=== PATIENT | male | born 1950 | race African-American/Black ===

== ENCOUNTER 2017-09-07 19:20 | Inpatient (IN) | payer OTHER, MEDICARE ==
--- NOTE | 2017-09-07 19:57 | ER Document Report ---
ED Neuro Symptoms/Deficit - General Stated Complaint: ALTERED MENTAL STATUS Time Seen by Provider: 09/07/17 19:52 Notes: Patient was being visited by his daughter and she says that he suddenly began to gaze to the right and that was followed by her noting his lips twitching and his right hand twitching. Patient has never had any of these symptoms before. He has had 3 prior strokes since March of this year. The first stroke in March left him with right-sided neurologic deficit and incapable of standing or walking or talking. That stroke was followed by 2 strokes in May that incapacitated him even further. One of those strokes resulted in his having a temporary left sided gaze of his eyes. Family moved him here to [place] on July 10, of this year. Daughter says that he has recovered enough function to ambulate a slight amount with assistance and he can answer a question or two with a yes or no answer. Is currently a resident in a local retirement, [place]. Patient is on Eliquis blood thinner. Known to have atrial fibrillation. Patient has not been sick in any way recently. No vomiting or diarrhea. No shortness of breath or difficulty breathing. No fevers. Past Medical History - Social History Smoking Status: Unknown if Ever Smoked Lives with: Assisted Family History: Reviewed & Not Pertinent - Past Medical History Cardiac Medical History: Reports: Hx Atrial Fibrillation, Hx Hypertension, Other - Pacemaker Neurological Medical History: Reports: Hx Cerebrovascular Accident - Multiple old strokes Endocrine Medical History: Denies: Hx Diabetes Mellitus Type 2 Past Surgical History: Reports: Hx Pacemaker Review of Systems - Review of Systems Notes: Patient is unable to answer review of systems, but daughter provides most of necessary information. REVIEW OF SYSTEMS: CONSTITUTIONAL : Denies fever. EENT: Denies eye, ear, nose or mouth or throat pain or other symptoms. CARDIOVASCULAR: Denies chest pain. RESPIRATORY: Denies cough, chest congestion, or shortness of breath. GASTROINTESTINAL: Denies abdominal pain or nausea, vomiting, or diarrhea. GENITOURINARY: Denies difficulty or painful urinating, urinary frequency, blood in urine. MUSCULOSKELETAL: Denies back or neck pain. Denies joint pain or swelling. SKIN: Denies rash or skin lesions. NEUROLOGICAL: See HPI regarding altered mental status. Daughter observed twitching of patient's mouth and right hand. Denies sensory loss or motor deficits. ALL OTHER SYSTEMS REVIEWED AND NEGATIVE. Physical Exam - Vital signs Vitals: Resp Pulse Ox 20 98 09/07/17 19:46 09/07/17 19:46 Interpretation: Hypertensive, Tachycardic. No: Hypoxic, Tachypneic, Febrile - Notes Notes: PHYSICAL EXAMINATION: GENERAL: Chronically ill appearing. Patient with head turned to the right and eyes deviating to the right only. Does not respond to questions verbally or by following commands. HEAD: Atraumatic, normocephalic. EYES: Patient's eyes are both deviated to the right. I do not see actual twitching of the eyes or lids. Unable to assess pupils. ENT: oropharynx clear without exudates. Moist mucous membranes. NECK: Normal range of motion, supple. LUNGS: Breath sounds clear and equal bilaterally. HEART: Regular rate and rhythm with murmurs. ABDOMEN: Soft, nontender. No guarding or rebound. Feeding tube in mid abdomen BACK: No tenderness throughout entire back. EXTREMITIES: Normal range of motion without pain except for right arm which is in a immobilizing splint. NEUROLOGICAL: No speech, no gait. Patient unable to cooperate for neurologic exam. May be exhibiting some form of seizure activity. PSYCH: Normal mood, normal affect. SKIN: Warm, dry, no rashes. Course - Re-evaluation Re-evalutation: 09/07/17 22:15 Patient's heart rate went up into the 150 range for short time. During that time, his blood pressure was also quite high at about 240/130. I started the patient off with 5 mg of Lopressor IV followed by Cardizem drip at 5 mg/h and his blood pressure and heart rate improved somewhat. I increase the patient's Cardizem drip to 10 mg/h and his heart rate was maintained at about 90 and his blood pressure came down to about 186/105. Oxygen saturation 100%. Patient is relaxed and resting. Daughter at the bedside noted him biting his lower lip and there is about a 2 cm laceration of the right lower lip, but I do not think it require suturing. Discussed plan for resuscitation should patient stop breathing or deteriorate in some fashion and the daughter seems to indicate to me that the family and the patient wished to have the patient resuscitated and to include the ventilator, if needed. Spoke with Dr. Canseco, this patient's primary care provider and he will admit the patient to [facility]. 09/07/17 22:35 - Vital Signs Vital signs: Temp Pulse Resp BP Pulse Ox 155 H 15 250/155 H 96 09/07/17 20:20 09/07/17 20:51 09/07/17 20:51 09/07/17 20:51 - Laboratory Result Diagrams: 09/07/17 20:05 09/07/17 20:05 Laboratory results interpreted by me: 09/07/17 09/07/17 09/07/17 20:05 20:05 20:05 WBC 3.1 L Hgb 11.7 L Hct 36.4 L MCV 77 L MCH 24.9 L RDW 19.3 H PT 16.2 H Potassium 3.4 L Glucose 169 H - Diagnostic Test Radiology reviewed: Image reviewed, Reports reviewed - CT scan of the brain shows multiple old infarcts, but no new injury or infarct. Radiology results interpreted by me: 09/07/17 22:20 Chest x-ray shows significant cardiomegaly, but otherwise normal, no infiltrates and no evidence of fluid overload. Critical Care Note - Critical Care Note Total time excluding time spent on procedures (mins): 60 Discharge - Discharge Clinical Impression: Altered mental status, Possible seizure, Hypertension Condition: Fair Disposition: ADMITTED INPATIENT Admitting Provider: Ele[facility] Unit Admitted: [facility] Referrals: RALPH CANSECO MD [Primary Care Provider] - Follow up as needed
--- NOTE | 2017-09-07 20:14 | RADIOLOGY REPORT (SQ) ---
EXAM DESCRIPTION: CT HEAD WITHOUT COMPLETED DATE/TIME: 09/07/2017 7:58 pm REASON FOR STUDY: Possible CVA COMPARISON: None. TECHNIQUE: Axial images acquired through the brain without intravenous contrast. Images reviewed wi th bone, brain and subdural windows. Images stored on PACS. All CT scanners at this facility use dose modulation, iterative reconstruction, and/or weight based d osing when appropriate to reduce radiation dose to as low as reasonably achievable (ALARA). [facility]: Dose Right [facility]: CareDose [facility]: Dose Right [facility]: Teradose 4D [facility]: [employer] RADIATION DOSE: Up-to-date CT equipment and radiation dose reduction techniques were employed. CTDIv ol: 64.6 mGy. DLP: 1163 mGy-cm.mGy. LIMITATIONS: None. FINDINGS: VENTRICLES: Prominent. CEREBRUM: No masses. No hemorrhage. No midline shift. Areas of low density in the white matter mos t likely due to chronic micro-vascular ischemic change. There is focal encephalomalacia in the left frontoparietal region in in both occipital regions consistent with areas of prior infarction. Old la cunar infarct is identified in the region of the basal ganglia on the left. CEREBELLUM: No masses. No hemorrhage. No alteration of density. No evidence for acute infarction. EXTRAAXIAL SPACES: Age-related involutional change. No fluid collections. No masses. ORBITS AND GLOBE: No intra- or extraconal masses. Normal contour of globe without masses. CALVARIUM: No fracture. PARANASAL SINUSES: No fluid or mucosal thickening. SOFT TISSUES: No mass or hematoma. OTHER: There is some prominence of the basilar tip measuring 9.9 mm and I cannot exclude a basilar ti p aneurysm. IMPRESSION: CHRONIC CHANGES OF ATROPHY AND MICROVASCULAR ISCHEMIA. Multiple areas of prior infarcti on as noted above. There is some prominence of the basilar tip as noted above and I cannot exclude a basilar tip aneurysm. Clinical correlation is recommended. Other findings as noted above EVIDENCE OF ACUTE STROKE: NO. TECHNICAL DOCUMENTATION: JOB ID: [id number] Quality ID # [id number]: Final reports with documentation of one or more dose reduction techniques (e.g., Au tomated exposure control, adjustment of the mA and/or kV according to patient size, use of iterative reconstruction technique) 2010 [employer]- All Rights Reserved
[2017-09-07 20:37] LABS: PROTHROMBIN TIME 16.2 SEC (11.4-15.4)
[2017-09-07 20:39] LABS: PARTIAL THROMBOPLASTIN TIME 35.1 SEC (23.5-35.8)
[2017-09-07 20:40] LABS: ABSOLUTE EOSINOPHILS # (AUTO) 0.1 10^3/uL (0.0-0.6); ABSOLUTE MONOCYTES (AUTO) 0.3 10^3/uL (0.1-1.4); ABSOLUTE NEUT (AUTO) 1.7 10^3/uL (1.7-8.2); BASOPHILS % (AUTO) 1.2 % (0-2); EOSINOPHILS % (AUTO) 3.7 % (0-6); HEMATOCRIT 36.4 % (37.9-51.0); HEMOGLOBIN 11.7 g/dL (13.5-17.0); HGB HCT DIFFERENCE -1.3; MEAN CORPUSCULAR HEMOGLOBIN 24.9 pg (27.0-33.4); MEAN CORPUSCULAR HGB CONC 32.2 g/dL (32.0-36.0); MEAN CORPUSCULAR VOLUME 77 fl (80-97); MONOCYTES % (AUTO) 10.5 % (3-13); RED CELL DISTRIBUTION WIDTH 19.3 % (11.5-14.0); SEGMENTED NEUTROPHILS % (AUTO) 53.6 % (42-78); WHITE BLOOD COUNT 3.1 10^3/uL (4.0-10.5)
[2017-09-07 20:44] LABS: ALANINE AMINOTRANSFERASE 31 U/L (21-72); ALBUMIN 3.6 g/dL (3.5-5.0); ALKALINE PHOSPHATASE 108 U/L (38-126); ANION GAP 12 (5-19); ASPARTATE AMINO TRANSFERASE 21 U/L (17-59); BILIRUBIN,DIRECT 0.3 mg/dL (0.0-0.4); BILIRUBIN,TOTAL 0.4 mg/dL (0.2-1.3); BLOOD UREA NITROGEN 12 mg/dL (7-20); CALCIUM 8.8 mg/dL (8.4-10.2); CARBON DIOXIDE 29 mmol/L (22-30); CHLORIDE 103 mmol/L (98-107); CREATINE KINASE 56 U/L (55-170); CREATININE RESULT 0.63 mg/dL (0.52-1.25); GLUCOSE 169 mg/dL (75-110); POTASSIUM 3.4 mmol/L (3.6-5.0); SODIUM 143.8 mmol/L (137-145); TOTAL PROTEIN 7.5 g/dL (6.3-8.2)
[2017-09-07] MEDS ORDERED: LORAZEPAM INJ 2 MG/1 ML VIAL IV ONE ×2 (20:47→21:45)
[2017-09-07] MEDS ORDERED: LORAZEPAM INJ 2 MG/1 ML VIAL ONE (20:49)
[2017-09-07] MEDS ORDERED: METOPROLOL TARTRATE PF/INJ 5 MG/5 ML SDV IV ONE (20:56)
--- NOTE | 2017-09-07 21:08 | RADIOLOGY REPORT (SQ) ---
EXAM DESCRIPTION: CHEST SINGLE VIEW COMPLETED DATE/TIME: 09/07/2017 8:36 pm REASON FOR STUDY: stroke protocol COMPARISON: None. EXAM PARAMETERS: NUMBER OF VIEWS: One view. TECHNIQUE: Single frontal radiographic view of the chest acquired. RADIATION DOSE: NA LIMITATIONS: None. FINDINGS: LUNGS AND PLEURA: No opacities, masses or pneumothorax. No pleural effusion. MEDIASTINUM AND HILAR STRUCTURES: No masses. Contour normal. HEART AND VASCULAR STRUCTURES: Cardiac silhouette is enlarged. BONES: No acute findings. HARDWARE: Pool chamber transvenous pacemaker is identified. OTHER: No other significant finding. IMPRESSION: Cardiomegaly. No acute consolidations or pleural effusions are identified TECHNICAL DOCUMENTATION: JOB ID: [id number]
[2017-09-07] MEDS: DILTIAZEM HCL/D5W 125 MG/125 ML RTUINJ IV PRN ×2 (21:12→21:47)
[2017-09-07 21:57] LABS: CREATINE KINASE MB 1.62 ng/mL (<4.55); TROPONIN I < 0.012 ng/mL
[2017-09-08 00:06] LABS: PROTHROMBIN TIME 15.5 SEC (11.4-15.4)
[2017-09-08 00:06] LABS: APPEARANCE,URINE CLEAR; BILIRUBIN,URINE NEGATIVE (NEGATIVE); GLUCOSE, URINE 50 mg/dL (NEGATIVE); KETONES,URINE NEGATIVE (NEGATIVE); LEUKOCYTE ESTERASE,URINE NEGATIVE (NEGATIVE); NITRITE,URINE NEGATIVE (NEGATIVE); PROTEIN,URINE 30 mg/dL (NEGATIVE); URINE SPECIFIC GRAVITY 1.008
[2017-09-08 00:07] LABS: PARTIAL THROMBOPLASTIN TIME 32.3 SEC (23.5-35.8)
[2017-09-08 00:16] LABS: CREATINE KINASE MB 1.91 ng/mL (<4.55)
[2017-09-08 00:25] LABS: TROPONIN I < 0.012 ng/mL
[2017-09-08] MEDS ORDERED: DILTIAZEM HCL/D5W 125 MG/125 ML RTUINJ IV PRN (02:36)
[2017-09-08] MEDS ORDERED: INFLUENZA ADLT QUAD (36MOS+) 2017-18 VAC 0.5 ML SYR IM PRN (03:02)
--- NOTE | 2017-09-08 06:36 | RADIOLOGY REPORT (SQ) ---
EXAM DESCRIPTION: CT HEAD WITHOUT COMPLETED DATE/TIME: 09/08/2017 6:28 am REASON FOR STUDY: cva COMPARISON: 09/07/2017 TECHNIQUE: Axial images acquired through the brain without intravenous contrast. Images reviewed wi th bone, brain and subdural windows. Images stored on PACS. All CT scanners at this facility use dose modulation, iterative reconstruction, and/or weight based d osing when appropriate to reduce radiation dose to as low as reasonably achievable (ALARA). [facility]: Dose Right [facility]: CareDose [facility]: Dose Right [facility]: Teradose 4D [facility]: [employer] RADIATION DOSE: mGy. LIMITATIONS: None. FINDINGS: VENTRICLES: Prominent. CEREBRUM: No masses. No hemorrhage. No midline shift. Areas of low density in the white matter mos t likely due to chronic micro-vascular ischemic change. No evidence for acute infarction. Multiple old infarcts. CEREBELLUM: No masses. No hemorrhage. No alteration of density. No evidence for acute infarction. EXTRAAXIAL SPACES: Age-related involutional change. No fluid collections. No masses. ORBITS AND GLOBE: No intra- or extraconal masses. Normal contour of globe without masses. CALVARIUM: No fracture. PARANASAL SINUSES: No fluid or mucosal thickening. SOFT TISSUES: No mass or hematoma. OTHER: Prominence of the basilar tip. Question aneurysm. IMPRESSION: CHRONIC CHANGES OF ATROPHY AND MICROVASCULAR ISCHEMIA. Multiple infarcts. Question bas ilar tip aneurysm. No change. EVIDENCE OF ACUTE STROKE: NO. TECHNICAL DOCUMENTATION: JOB ID: [id number] Quality ID # [id number]: Final reports with documentation of one or more dose reduction techniques (e.g., Au tomated exposure control, adjustment of the mA and/or kV according to patient size, use of iterative reconstruction technique) 2010 [employer]- All Rights Reserved
[2017-09-08 07:02] LABS: ABSOLUTE LYMPHOCYTES (AUTO) 0.5 10^3/uL (0.5-4.7); ABSOLUTE MONOCYTES (AUTO) 0.4 10^3/uL (0.1-1.4); ABSOLUTE NEUT (AUTO) 6.6 10^3/uL (1.7-8.2); BASOPHILS % (AUTO) 0.3 % (0-2); HEMATOCRIT 39.6 % (37.9-51.0); HEMOGLOBIN 12.5 g/dL (13.5-17.0); HGB HCT DIFFERENCE -2.1; LYMPHOCYTES % (AUTO) 6.7 % (13-45); MEAN CORPUSCULAR HEMOGLOBIN 24.4 pg (27.0-33.4); MEAN CORPUSCULAR HGB CONC 31.5 g/dL (32.0-36.0); MEAN CORPUSCULAR VOLUME 78 fl (80-97); MONOCYTES % (AUTO) 4.8 % (3-13); RED CELL DISTRIBUTION WIDTH 18.9 % (11.5-14.0); SEGMENTED NEUTROPHILS % (AUTO) 88.2 % (42-78)
[2017-09-08 07:07] LABS: WHITE BLOOD COUNT 7.4 10^3/uL (4.0-10.5)
[2017-09-08 07:15] LABS: ALANINE AMINOTRANSFERASE 44 U/L (21-72); ALBUMIN 4.2 g/dL (3.5-5.0); ALKALINE PHOSPHATASE 127 U/L (38-126); ANION GAP 13 (5-19); ASPARTATE AMINO TRANSFERASE 28 U/L (17-59); BILIRUBIN,DIRECT 0.4 mg/dL (0.0-0.4); BILIRUBIN,TOTAL 0.6 mg/dL (0.2-1.3); BLOOD UREA NITROGEN 11 mg/dL (7-20); CALCIUM 8.9 mg/dL (8.4-10.2); CARBON DIOXIDE 33 mmol/L (22-30); CHLORIDE 101 mmol/L (98-107); CHOLESTEROL 90.79 mg/dL (0-200); CREATINE KINASE 49 U/L (55-170); CREATININE RESULT 0.71 mg/dL (0.52-1.25); Direct HDL 47 mg/dL (>40); GLUCOSE 113 mg/dL (75-110); SODIUM 147.2 mmol/L (137-145); TOTAL PROTEIN 8.2 g/dL (6.3-8.2); TRIGLYCERIDES 33 mg/dL (<150)
[2017-09-08 07:24] LABS: CREATINE KINASE MB 3.06 ng/mL (<4.55)
[2017-09-08 07:26] LABS: DIRECT LDL 36 mg/dL (<100)
[2017-09-08 07:36] LABS: TROPONIN I 0.046 ng/mL
[2017-09-08 07:37] LABS: POTASSIUM 4.4 mmol/L (3.6-5.0)
[2017-09-08 11:52] LABS: CREATINE KINASE MB 2.99 ng/mL (<4.55); TROPONIN I 0.04 ng/mL
[2017-09-08] MEDS ORDERED: LORAZEPAM INJ 2 MG/1 ML VIAL ONE (12:24)
[2017-09-08] MEDS ORDERED: METOPROLOL TARTRATE PF/INJ 5 MG/5 ML SDV IV ONE ×2 (12:31→13:12)
--- NOTE | 2017-09-08 14:52 | RADIOLOGY REPORT (SQ) ---
EXAM DESCRIPTION: CAROTID DOPPLER COMPLETED DATE/TIME: 09/08/2017 2:42 pm REASON FOR STUDY: cva COMPARISON: None. TECHNIQUE: Grayscale ultrasound, Doppler velocity and spectra, and color Doppler images acquired of the extra-cranial carotid and vertebral arteries. Images stored on PACS. LIMITATIONS: None. FINDINGS: RIGHT CAROTID CCA Velocities: Within normal limits. ICA Velocities Peak systolic 0.66 m/s. End diastolic 0.17 m/s. Proximal ICA/CCA peak systolic ratio 2.3. Spectra normal. No significant plaque. LEFT CAROTID CCA Velocities: Within normal limits. ICA Velocities Peak systolic 0.65 m/s. End diastolic 0.26 m/s. Proximal ICA/CCA peak systolic ratio 1.5. Spectra normal. No significant plaque. VERTEBRAL ARTERIES: Right vertebral artery patent. Left vertebral artery not visualized. SUBCLAVIAN ARTERIES: No finding. OTHER: No other significant finding. IMPRESSION: NO HEMODYNAMICALLY SIGNIFICANT STENOSIS IN THE INTERNAL CAROTID ARTERIES. THE LEFT VERT EBRAL ARTERY IS NOT VISUALIZED AND MAY BE SMALL OR OCCLUDED. RIGHT VERTEBRAL ARTERY IS PATENT. . COMMENT: Quality ID #[id number]: Velocity criteria are extrapolated from the diameter data as defined by t he Society of Radiologists in Ultrasound Consensus Conference. Radiology 2003: 229; 340-346. TECHNICAL DOCUMENTATION: JOB ID: [id number] [employer]- All Rights Reserved
--- NOTE | 2017-09-08 15:28 | EKG REPORT ---
SEVERITY:- ABNORMAL ECG - AFIB/FLUT AND V-PACED COMPLEXES RBBB AND LPFB CONSIDER LEFT VENTRICULAR HYPERTROPHY NONSPECIFIC ST DEPRESSION, ANT-LAT LEADS : Confirmed by: Yvette Shin 08-Sep-2017 15:27:24
[2017-09-08 15:44] LABS: MAGNESIUM 1.9 mg/dL (1.6-2.3)
[2017-09-08 15:57] LABS: CREATINE KINASE MB 3.23 ng/mL (<4.55); TROPONIN I 0.039 ng/mL
[2017-09-08] MEDS ORDERED: TRAZODONE HCL 50 MG TABLET PO PRN (16:02)
[2017-09-08] MEDS ORDERED: ACETAMINOPHEN 325 MG TABLET PO PRN (16:02)
--- NOTE | 2017-09-08 19:16 | PDOC H&P ---
History of Present Illness Admission Date/PCP: 09/07/17 22:51 RALPH CANSECO MD History of Present Illness: MAGALI DUNCAN is a 67 year old male, he has a history of multiple strokes, resident of the [facility] at [place], residual right-sided paralysis, aphasia he was transferred from the penit[facility]iary to the emergency room because of altered mental status, there was question of a new stroke, in the emergency room he was noticed to be twitching but there was no definitive tonic-clonic contraction that would suggest a seizure, but seizure was suspected, he was given lorazepam intravenously with resolution of symptoms. He has a pacemaker MRI brain could not be done, initial CT head was negative for an acute stroke, while on the floor, a tonic-clonic contraction was witnessed by the nurse, was given lorazepam and subsequently IV Dilantin, loading dose. Patient overall prognosis is very poor, he has multiple CVA about 3 CVA before he moved down to [facility] in [place]. 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 MRA could not be done because he has a pacemaker , he has limited functions Past Medical History Cardiac Medical History: Reports: Atrial Fibrillation, Hypertension, Other - Pacemaker Neurological Medical History: Reports: Ischemic CVA Past Surgical History Past Surgical History: Reports: Pacemaker Social History Lives with: Assisted Smoking Status: Unknown if Ever Smoked Frequency of Alcohol Use: None Hx Recreational Drug Use: No Drugs: None Hx Prescription Drug Abuse: No - Advance Directive Resuscitation Status: Full Code Family History Family History: Reviewed & Not Pertinent Parental Family History Reviewed: Yes Children Family History Reviewed: Yes Sibling(s) Family History Reviewed.: Yes Medication/Allergy Home Medications: Acetaminophen [Tylenol 325 mg Tablet] 650 mg PO Q4HP PRN 09/08/17 Amlodipine Besylate [Norvasc 2.5 mg Tablet] 2.5 mg PO DAILY 09/08/17 Atorvastatin Calcium [Lipitor 20 mg Tablet] 20 mg PO QHS 09/08/17 Citalopram Hydrobromide [Celexa 20 mg Tablet] 20 mg PO DAILY 09/08/17 Ferrous Sulfate [Ferrous Sulfate 220 mg/5 ml Elix 60 ml] 325 mg PO DAILY Lisinopril [Prinivil 40 mg Tablet] 40 mg PO DAILY 09/08/17 Metoprolol Tartrate [Lopressor 25 mg Tablet] 12.5 mg PO Q12 09/08/17 RX: Apixaban [Eliquis 5 mg Tablet] 5 mg PO Q12 09/08/17 Trazodone HCl [Desyrel 50 mg Tablet] 25 mg PO Q6HP PRN 09/08/17 Allergies/Adverse Reactions: lactose Allergy (Verified 09/08/17 01:51) Review of Systems ROS unobtainable: Due to mental status Physical Exam Vital Signs: Temp Pulse Resp BP Pulse Ox 98.9 F 63 18 157/91 H 100 09/08/17 16:00 09/08/17 16:00 09/08/17 16:00 09/08/17 16:00 09/08/17 16:00 Intake & Output 09/07/17 09/08/17 09/09/17 06:59 06:59 06:59 Intake Total 25 0 Output Total 600 600 Balance -575 -600 Weight 68.2 kg Eye exam: PRESENT: conjunctiva pink, EOMI, PERRLA. ABSENT: scleral icterus Ear exam: PRESENT: normal external ear exam Mouth exam: PRESENT: moist, tongue midline Neck exam: PRESENT: full ROM Cardiovascular exam: PRESENT: RRR, +S1, +S2 Vascular exam: PRESENT: normal capillary refill GI/Abdominal exam: PRESENT: normal bowel sounds, soft, other - There is a PEG tube in place Rectal exam: PRESENT: deferred Neurological exam: PRESENT: alert, motor sensory deficit - Right-sided paralysis Results Laboratory Results: 09/08/17 06:44 09/08/17 06:44 09/07/17 09/08/17 09/08/17 23:26 06:44 06:44 WBC 7.4 D RBC 5.10 Hgb 12.5 L Hct 39.6 MCV 78 L MCH 24.4 L MCHC 31.5 L RDW 18.9 H Plt Count 195 Seg Neutrophils % 88.2 H Lymphocytes % 6.7 L Monocytes % 4.8 Eosinophils % 0.0 Basophils % 0.3 Absolute Neutrophils 6.6 Absolute Lymphocytes 0.5 Absolute Monocytes 0.4 Absolute Eosinophils 0.0 Absolute Basophils 0.0 Sodium 147.2 H Potassium 4.4 D Chloride 101 Carbon Dioxide 33 H Anion Gap 13 BUN 11 Creatinine 0.71 Est GFR ( Amer) > 60 Est GFR (Non-Af Amer) > 60 Glucose 113 H Calcium 8.9 Magnesium Total Bilirubin 0.6 AST 28 ALT 44 Alkaline Phosphatase 127 H Total Protein 8.2 Albumin 4.2 Triglycerides 33 Cholesterol 90.79 LDL Cholesterol Direct 36 VLDL Cholesterol 7.0 L HDL Cholesterol 47 Urine Color YELLOW Urine Appearance CLEAR Urine pH 6.0 Ur Specific [place] 1.008 Urine Protein 30 H Urine Glucose (UA) 50 H Urine Ketones NEGATIVE Urine Blood NEGATIVE Urine Nitrite NEGATIVE Ur Leukocyte Esterase NEGATIVE Urine WBC (Auto) 12 Urine RBC (Auto) 5 09/08/17 15:05 WBC RBC Hgb Hct MCV MCH MCHC RDW Plt Count Seg Neutrophils % Lymphocytes % Monocytes % Eosinophils % Basophils % Absolute Neutrophils Absolute Lymphocytes Absolute Monocytes Absolute Eosinophils Absolute Basophils Sodium Potassium Chloride Carbon Dioxide Anion Gap BUN Creatinine Est GFR ( Amer) Est GFR (Non-Af Amer) Glucose Calcium Magnesium 1.9 Total Bilirubin AST ALT Alkaline Phosphatase Total Protein Albumin Triglycerides Cholesterol LDL Cholesterol Direct VLDL Cholesterol HDL Cholesterol Urine Color Urine Appearance Urine pH Ur Specific [place] Urine Protein Urine Glucose (UA) Urine Ketones Urine Blood Urine Nitrite Ur Leukocyte Esterase Urine WBC (Auto) Urine RBC (Auto) 09/07/17 09/07/17 09/08/17 23:44 23:44 06:44 Creatine Kinase 55 49 L CK-MB (CK-2) 1.91 Troponin I < 0.012 09/08/17 09/08/17 09/08/17 06:44 11:12 11:12 Creatine Kinase 49 L CK-MB (CK-2) 3.06 2.99 Troponin I 0.046 0.040 09/08/17 09/08/17 15:05 15:05 Creatine Kinase 52 L CK-MB (CK-2) 3.23 Troponin I 0.039 Impressions: Chest X-Ray 09/07/17 20:17 IMPRESSION: Cardiomegaly. No acute consolidations or pleural effusions are identified Head CT 09/07/17 22:53 IMPRESSION: CHRONIC CHANGES OF ATROPHY AND MICROVASCULAR ISCHEMIA. Multiple infarcts. Question basilar tip aneurysm. No change. EVIDENCE OF ACUTE STROKE: NO. Carotid Doppler Study 09/08/17 00:00 IMPRESSION: NO HEMODYNAMICALLY SIGNIFICANT STENOSIS IN THE INTERNAL CAROTID ARTERIES. THE LEFT VERTEBRAL ARTERY IS NOT VISUALIZED AND MAY BE SMALL OR OCCLUDED. RIGHT VERTEBRAL ARTERY IS PATENT. . Assessment & Plan - Diagnosis (1) New onset seizure Is this a current diagnosis for this admission?: Yes Plan: The differential diagnosis could be idiopathic seizure, seizure secondary to CVA , seizure as a result of hypertensive encephalopathy. He was given a loading dose of Dilantin and maintenance dose of Keppra. A new stroke could not be completely ruled out, MRI brain could not be done because he has a pacemaker. (2) Hypertensive emergency Is this a current diagnosis for this admission?: Yes (3) Hypertensive emergency Is this a current diagnosis for this admission?: Yes (4) Chronic atrial fibrillation Is this a current diagnosis for this admission?: Yes Plan: Patient will be continued on medication for A. fib (5) Basilar artery aneurysm Is this a current diagnosis for this admission?: Yes
[2017-09-08] MEDS: METOPROLOL TARTRATE 25 MG TABLET PO SCH (22:03)
[2017-09-08] MEDS: LEVETIRACETAM 500 MG TABLET PO SCH (22:04)
[2017-09-08] MEDS: ATORVASTATIN CALCIUM 20 MG TABLET PO SCH (22:04)
[2017-09-08] MEDS: APIXABAN 5 MG TABLET PO SCH (22:06)
[2017-09-09 06:17] LABS: ABSOLUTE LYMPHOCYTES (AUTO) 0.7 10^3/uL (0.5-4.7); ABSOLUTE MONOCYTES (AUTO) 0.5 10^3/uL (0.1-1.4); ABSOLUTE NEUT (AUTO) 3.8 10^3/uL (1.7-8.2); BASOPHILS % (AUTO) 0.4 % (0-2); EOSINOPHILS % (AUTO) 0.5 % (0-6); HEMATOCRIT 35.4 % (37.9-51.0); HEMOGLOBIN 11.5 g/dL (13.5-17.0); HGB HCT DIFFERENCE -0.9; LYMPHOCYTES % (AUTO) 13.9 % (13-45); MEAN CORPUSCULAR HEMOGLOBIN 25.2 pg (27.0-33.4); MEAN CORPUSCULAR HGB CONC 32.5 g/dL (32.0-36.0); MEAN CORPUSCULAR VOLUME 78 fl (80-97); MONOCYTES % (AUTO) 9.3 % (3-13); RED BLOOD COUNT 4.57 10^6/uL (4.35-5.55); RED CELL DISTRIBUTION WIDTH 18.9 % (11.5-14.0); SEGMENTED NEUTROPHILS % (AUTO) 75.9 % (42-78)
[2017-09-09 06:25] LABS: ALANINE AMINOTRANSFERASE 37 U/L (21-72); ALBUMIN 3.7 g/dL (3.5-5.0); ALKALINE PHOSPHATASE 104 U/L (38-126); ANION GAP 12 (5-19); ASPARTATE AMINO TRANSFERASE 27 U/L (17-59); BILIRUBIN,DIRECT 0.3 mg/dL (0.0-0.4); BILIRUBIN,TOTAL 0.6 mg/dL (0.2-1.3); BLOOD UREA NITROGEN 16 mg/dL (7-20); CALCIUM 9.3 mg/dL (8.4-10.2); CARBON DIOXIDE 33 mmol/L (22-30); CHLORIDE 100 mmol/L (98-107); CREATININE RESULT 0.66 mg/dL (0.52-1.25); GLUCOSE 155 mg/dL (75-110); POTASSIUM 3.8 mmol/L (3.6-5.0); SODIUM 145.3 mmol/L (137-145); TOTAL PROTEIN 7.6 g/dL (6.3-8.2)
--- NOTE | 2017-09-09 09:22 | Progress Note ---
Provider Note Provider Note: I was on the floor walking past the patient's room when I noticed that the nurses were running around trying to take care of this patient. He was actively convulsing. The nursing staff informs me that the patient was seizing and that they had a phone call into the patient's primary provider. Rather than wait for rapid response to be called for which I would have to attend, I went in to see the patient. I witnessed him actively seizing with tonic-clonic movements of the left upper extremity, left lower extremity twitching of the face. The entire episode lasted approximately 4 minutes. I ordered stat Ativan at 2 mg IV push. Blood pressure was taken at the bedside and was noted to be 250/150 manually as performed by 1 of the nurses. Anterior breath sounds during the episode or course. It should be noted, however, that this is obscured by gurgling that was occurring during the convulsions. Patient was tachycardic. The patient was ordered a stat dose of 5 mg IV of metoprolol. Unfortunately Ativan could not be obtained quickly. The seizure resolved while I was standing at the bedside and the patient was left with a few minor left facial tics. I asked for the Ativan to be given nevertheless. Orders were also received from the patient's primary physician. Please see nursing documentation for details of those orders. Repeat blood pressure was 141 systolic and was taken within 5-10 minutes minutes after the dose of the metoprolol. This was verified automatically and manually. The patient's telemetry showed ST segment depression. This seems to be consistent with EKGs done yesterday. Stat labs were ordered to include CMP, CBC, troponins, magnesium. EEG was recommended. I did have the opportunity to speak with Dr. Bush by phone and informed him of my involvement. Time spent 20 minutes.
[2017-09-09] MEDS ORDERED: LISINOPRIL 10 MG TABLET PO SCH (10:00)
[2017-09-09] MEDS ORDERED: FERROUS SULFATE 325 MG PO SCH (10:00)
[2017-09-09] MEDS ORDERED: FERROUS SULFATE 325 MG TABLET PO SCH (10:00)
[2017-09-09] MEDS ORDERED: AMLODIPINE BESYLATE 2.5 MG TABLET PO SCH (10:00)
[2017-09-09] MEDS: APIXABAN 5 MG TABLET PO SCH ×2 (10:43→20:16)
[2017-09-09] MEDS: LEVETIRACETAM 500 MG TABLET PO SCH ×2 (10:43→20:15)
[2017-09-09] MEDS: FERROUS SULFATE LIQUID 300 MG/5 ML UDC PO SCH (10:44)
[2017-09-09] MEDS: METOPROLOL TARTRATE 25 MG TABLET PO SCH ×2 (10:44→20:15)
[2017-09-09] MEDS: CITALOPRAM HYDROBROMIDE 20 MG TABLET PO SCH (10:46)
--- NOTE | 2017-09-09 12:16 | XCELERA REPORT ---
[address] [address] Transthoracic Echocardiogram Report Name: MAGALI DUNCAN Age: 67 yrs Gender: Male : 1950 Patient Status: Inpatient Patient Location: [address] [place] [address] Study Date: 09/08/2017 01:12 PM Height: 75 in Weight: 150 lb BSA: 1.9 m2 Procedure: A two-dimensional transthoracic echocardiogram with color flow and Doppler was performed. The study was technically difficult with many images being suboptimal in quality. The study was technically limited with all images being suboptimal in quality. Reason For Study: CVA History: CVA. Ordering Physician: RALPH CANSECO Performed By: Jo Ann Chavez Interpretation Summary There is no obvious cardiac source of embolus noted on this transthoracic echocardiogram. Follow-up with a SERA is suggested if cardiac source is still suspected. The left ventricle is normal in size. There is severe concentric left ventricular hypertrophy. LV EF is 55% Left ventricular systolic function is low normal. The left ventricular wall motion is normal. There is no thrombus. The right ventricle is not well visualized secondary to technical limitations The left atrial size is normal. There is no evidence of mitral valve prolapse. The mitral valve leaflets are thickened and redundant without clear evidence of mitral valve prolapse. There is no vegetation seen on the mitral valve. There is no mitral valve stenosis. There is a mild amount of mitral regurgitation There is no aortic valvular vegetation. There is mild aortic stenosis There is no LVOT obstruction. No aortic regurgitation is present. There is no tricuspid stenosis. There is a mild amount of tricuspid regurgitation RVSP is 31 mm of Hg , with RA mean of 10.RVSP is just above the upper normal limits of 30 mm of Hg. The aortic root is mildly dilated There is no pericardial effusion. There is a pacemaker lead in the right ventricle. There is no obvious cardiac source of embolus noted on this transthoracic echocardiogram. Follow-up with a SERA is suggested if cardiac source is still suspected MMode/2D Measurements & Calculations RVDd: 3.0 cm LVIDd: 2.9 cmFS: 36.4 % Ao root diam: 3.9 cm IVSd: 2.7 cm LVIDs: 1.9 cmEDV(Teich): 32.9 ml LVPWd: 2.5 cmESV(Teich): 10.6 ml Ao root area: 12.1 cm2 EF(Teich): 67.8 % LA dimension: 3.4 cm LVOT diam: 2.2 cm LVOT area: 3.9 cm2 Doppler Measurements & Calculations MV E max hafsa: MV P1/2t max hafsa: Ao V2 max: LV V1 max P.0 cm/sec 111.6 cm/sec 223.2 cm/sec 2.3 mmHg MV P1/2t: 102.4 msec Ao max PG: LV V1 mean PG: MVA(P1/2t): 2.1 cm2 19.9 mmHg 0.95 mmHg MV dec slope: Ao V2 mean: LV V1 max: 319.2 cm/sec2 148.7 cm/sec 75.0 cm/sec Ao mean PG: LV V1 mean: 10.3 mmHg 45.1 cm/sec Ao V2 VTI: LV V1 VTI: 40.8 cm 15.4 cm ABRIL(I,D): 1.5 cm2 ABRIL(V,D): 1.3 cm2 SV(LVOT): 59.4 ml PA V2 max: TR max hafsa: 93.3 cm/sec 229.4 cm/sec PA max P.5 mmHg TR max P.0 mmHg Left Ventricle The left ventricle is normal in size. There is severe concentric left ventricular hypertrophy. LV EF is 55%. Left ventricular systolic function is low normal. LV diastolic function could not be adequately assessed due to atrial fibrilation. The left ventricular wall motion is normal. There is no thrombus. Right Ventricle The right ventricle is not well visualized secondary to technical limitations. There is a pacemaker lead in the right ventricle. Atria The right atrium is normal. The left atrial size is normal. Mitral Valve There is mild mitral annular calcification. There is no evidence of mitral valve prolapse. The mitral valve leaflets are thickened and redundant without clear evidence of mitral valve prolapse. There is no vegetation seen on the mitral valve. There is no mitral valve stenosis. There is a mild amount of mitral regurgitation. Aortic Valve There is no aortic valvular vegetation. There is mild aortic stenosis. There is no LVOT obstruction. No aortic regurgitation is present. Tricuspid Valve There is no tricuspid stenosis. There is a mild amount of tricuspid regurgitation. RVSP is 31 mm of Hg , with RA mean of 10.RVSP is just above the upper normal limits of 30 mm of Hg. Pulmonic Valve There is no pulmonic valvular stenosis. There is no pulmonic valvular regurgitation. Great Vessels The aortic root is mildly dilated. Effusions There is no pericardial effusion. : RALPH CANSECO > Payton Ryan
--- NOTE | 2017-09-09 16:50 | PDOC PROGRESS REPORT ---
Subjective Progress Note for:: 09/09/17 Subjective:: Patient is not very responsive to verbal commands, is alert, I suspect he may have sustained a stroke. MRI of the brain could not be done because he has a pacemaker, he has a history of previous strokes, CT had to be ordered Physical Exam Vital Signs: Temp Pulse Resp BP Pulse Ox 98.6 F 67 18 178/105 H 96 09/09/17 12:00 09/09/17 14:00 09/09/17 12:00 09/09/17 12:00 09/09/17 12:00 Intake & Output 09/08/17 09/09/17 09/10/17 06:59 06:59 06:59 Intake Total 25 0 0 Output Total 600 800 Balance -575 -800 0 Weight 68.2 kg 150.5 kg 67.222 kg General appearance: PRESENT: no acute distress Head exam: PRESENT: atraumatic, normocephalic Eye exam: PRESENT: PERRLA. ABSENT: scleral icterus Ear exam: PRESENT: normal external ear exam Respiratory exam: PRESENT: clear to auscultation carmen Cardiovascular exam: PRESENT: RRR, +S1, +S2 Pulses: PRESENT: normal dorsalis pedis pul, +2 pedal pulses bilateral Vascular exam: PRESENT: normal capillary refill GI/Abdominal exam: PRESENT: soft Rectal exam: PRESENT: deferred Neurological exam: PRESENT: alert. ABSENT: motor sensory deficit Skin exam: PRESENT: dry, intact, warm. ABSENT: cyanosis, rash Results Laboratory Results: 09/09/17 05:59 09/09/17 05:59 09/09/17 09/09/17 05:59 05:59 WBC 5.0 RBC 4.57 Hgb 11.5 L Hct 35.4 L MCV 78 L MCH 25.2 L MCHC 32.5 RDW 18.9 H Plt Count 185 Seg Neutrophils % 75.9 Lymphocytes % 13.9 Monocytes % 9.3 Eosinophils % 0.5 Basophils % 0.4 Absolute Neutrophils 3.8 Absolute Lymphocytes 0.7 Absolute Monocytes 0.5 Absolute Eosinophils 0.0 Absolute Basophils 0.0 Sodium 145.3 H Potassium 3.8 Chloride 100 Carbon Dioxide 33 H Anion Gap 12 BUN 16 Creatinine 0.66 Est GFR ( Amer) > 60 Est GFR (Non-Af Amer) > 60 Glucose 155 H Calcium 9.3 Total Bilirubin 0.6 AST 27 ALT 37 Alkaline Phosphatase 104 Total Protein 7.6 Albumin 3.7 09/07/17 09/07/17 09/08/17 23:44 23:44 06:44 Creatine Kinase 55 49 L CK-MB (CK-2) 1.91 Troponin I < 0.012 09/08/17 09/08/17 09/08/17 06:44 11:12 11:12 Creatine Kinase 49 L CK-MB (CK-2) 3.06 2.99 Troponin I 0.046 0.040 09/08/17 09/08/17 15:05 15:05 Creatine Kinase 52 L CK-MB (CK-2) 3.23 Troponin I 0.039 Impressions: Chest X-Ray 09/07/17 20:17 IMPRESSION: Cardiomegaly. No acute consolidations or pleural effusions are identified Head CT 09/07/17 22:53 IMPRESSION: CHRONIC CHANGES OF ATROPHY AND MICROVASCULAR ISCHEMIA. Multiple infarcts. Question basilar tip aneurysm. No change. EVIDENCE OF ACUTE STROKE: NO. Carotid Doppler Study 09/08/17 00:00 IMPRESSION: NO HEMODYNAMICALLY SIGNIFICANT STENOSIS IN THE INTERNAL CAROTID ARTERIES. THE LEFT VERTEBRAL ARTERY IS NOT VISUALIZED AND MAY BE SMALL OR OCCLUDED. RIGHT VERTEBRAL ARTERY IS PATENT. . Assessment & Plan - Diagnosis (1) New onset seizure Is this a current diagnosis for this admission?: Yes Plan: I suspect CVA, CT had ordered (2) Hypertensive emergency Is this a current diagnosis for this admission?: Yes (3) Hypertensive emergency Is this a current diagnosis for this admission?: Yes (4) Chronic atrial fibrillation Is this a current diagnosis for this admission?: Yes
--- NOTE | 2017-09-09 18:00 | RADIOLOGY REPORT (SQ) ---
EXAM DESCRIPTION: CT HEAD WITHOUT COMPLETED DATE/TIME: 09/09/2017 5:38 pm REASON FOR STUDY: SUSPECT CVA COMPARISON: 09/08/2017 TECHNIQUE: Axial images acquired through the brain without intravenous contrast. Images reviewed wi th bone, brain and subdural windows. Images stored on PACS. All CT scanners at this facility use dose modulation, iterative reconstruction, and/or weight based d osing when appropriate to reduce radiation dose to as low as reasonably achievable (ALARA). [facility]: Dose Right [facility]: CareDose [facility]: Dose Right [facility]: Teradose 4D [facility]: Smart Soraa RADIATION DOSE: Up-to-date CT equipment and radiation dose reduction techniques were employed. CTDIv ol: 64.6 mGy. DLP: 1163 mGy-cm. mGy. LIMITATIONS: None. FINDINGS: VENTRICLES: Prominent ventricles secondary to involutional atrophy. CEREBRUM: No masses. No hemorrhage. No midline shift. No evidence for acute infarction. Old left temporal/parietal and bilateral occipital infarcts. Few scattered areas of low density in the white m atter most likely chronic small vessel ischemic changes. Cortical atrophy. CEREBELLUM: No masses. No hemorrhage. No alteration of density. No evidence for acute infarction. EXTRAAXIAL SPACES: No fluid collections. No masses. ORBITS AND GLOBE: No intra- or extraconal masses. Normal contour of globe without masses. CALVARIUM: No fracture. PARANASAL SINUSES: No fluid or mucosal thickening. SOFT TISSUES: No mass or hematoma. OTHER: Basilar artery aneurysm. IMPRESSION: 1. Old infarcts. 2. Involutional changes of aging with microvascular ischemia and and no acute intracranial findings. 3. Basilar artery aneurysm. EVIDENCE OF ACUTE STROKE: NO. COMMENT: Quality ID # [id number]: Final reports with documentation of one or more dose reduction techniques (e.g., Automated exposure control, adjustment of the mA and/or kV according to patient size, use of iterative reconstruction technique) TECHNICAL DOCUMENTATION: JOB ID: [id number]- All Rights Reserved
[2017-09-09] MEDS: LISINOPRIL 10 MG TABLET PO SCH (20:14)
[2017-09-09] MEDS: ATORVASTATIN CALCIUM 20 MG TABLET PO SCH (20:15)
[2017-09-09] MEDS ORDERED: CIPROFLOXACIN HCL 0.3% OPH SOLN 2.5 ML OD SCH (22:00)
[2017-09-09] MEDS ORDERED: AMLODIPINE BESYLATE 10 MG TABLET NG ONE (23:00)
[2017-09-09] MEDS ORDERED: AMLODIPINE BESYLATE 10 MG TABLET PEG ONE (23:00)
[2017-09-10] MEDS: CIPROFLOXACIN HCL 0.3% OPH SOLN 2.5 ML OS SCH ×6 (01:53→22:15)
--- NOTE | 2017-09-10 03:18 | CONSULTATION REPORT E ---
Consultation Report NAME: MAGALI DUNCAN : 1950 AGE: 67Y DATE: 321 B TO: KELSEA VALLEJO M.D. FROM: RALPH CANSECO M.D. Requesting Physician DATE OF CONSULTATION: 09/09/2017 REASON FOR CONSULTATION: The family requested that cardiology see the patient, since the patient has atrial fibrillation and uncontrolled blood pressure. HISTORY: Note that patient is aphasic and would not talk, and hence the history obtained from the daughter. As per the notes and the daughter, the patient has a history of 2 CVAs in the past and is a resident of a residential in [place] with residual right-sided paralysis, who all of a sudden altered mental status and would not walk or eat. Also, there is a question of a new stroke, and hence the patient was brought to the emergency room and also to the main hospital, where he was found to have some twitching, but there was no definite contractions suggestive of grand-mal seizure. He was given lorazepam intravenously with resolution of his symptoms, suggesting that the patient did have seizures, and that was a postictal state. Since the patient has a permanent pacemaker, he had a CAT scan, which did not show any new CVA; there was just an old CVA seen. Also, the patient's blood pressure has been high, and Dr. Canseco has suggested increasing his medications. This morning the patient had a witnessed tonic-clonic seizure and was given lorazepam. Also, the patient was loaded up with IV Dilantin, will be on that and also Keppra. PAST MEDICAL HISTORY: As per the daughter, the patient has a history of chronic atrial fibrillation and suffered a stroke, which apparently caused him right-sided weakness, but he was able to walk and move around, but after the second stroke the patient stopped eating and stopped ambulating, and he was given a PEG tube and was fed with that. The patient was also on blood thinners at that time. Subsequently the patient prior to that had a hypersensitive carotid syndrome, where if he pressed on the neck he would faint, and hence he had a permanent pacemaker placed. The patient also in the past has had a GI bleed and had a polypectomy to stop it. The patient states that some time after the second stroke, the patient was able to walk with help and also was able to eat, although the PEG tube remained there. The daughter thinks that he might have had a mild heart attack when he had the first stroke. There were no prior seizures, and this is a new-onset seizure. The patient is not a diabetic. There is no thyroid disease. There is no other medical history available. PAST SURGICAL HISTORY: Positive for: 1. Permanent pacemaker placement. 2. PEG tube placement. 3. Endoscopic polypectomy to stop the GI bleed. SOCIAL HISTORY: The patient has never smoked. There is no history of ETOH abuse. FAMILY HISTORY: Positive for coronary artery disease. ALLERGIES: The patient has no known allergies. MEDICATIONS AT PRESENT: 1. Acetaminophen 650 mg p.o. q. 4 hours p.r.n. 2. He was on amlodipine 2.5 mg, which was increased to 10 mg once a day via the PEG tube, and the patient did receive 1 dose of amlodipine. 3. Eliquis 5 mg p.o. q. 12 hours to prevent new seizures. 4. Atorvastatin 20 mg p.o. at bedtime. 5. Ciprofloxacin hydrochloride 1 drop left eye q. 4 hours. 6. Citalopram hydrobromide 20 mg p.o. daily. 7. Pravastatin 300 mg p.o. daily. 8. He will get flu vaccine 0.5 mL on the day of discharge. 9. Keppra 500 mg p.o. q. 12 hours. 10. He is on lisinopril 40 mg p.o. q. 12 hours, which is being increased from 40 mg p.o. once a day. 11. Metoprolol 12.5 mg p.o. q. 12 hours. 12. Desyrel 25 mg p.o. q. 6 hours p.r.n. REVIEW OF SYSTEMS: CONSTITUTIONAL: There is no history of fever, chills, or rigors, as per the daughter. EYES: He has no history of blindness. EARS: It is difficult to say whether the patient has hearing loss or not. THROAT: The patient stopped eating recently. There is no history of recurrent sore throats. LUNGS: There is no history of asthma or COPD. There is no history of sleep apnea. There is no history of cough or sputum production. There is no wheezing. CARDIAC: History of chronic atrial fibrillation. History of permanent pacemaker for hypersensitivity carotids. There is no history of congestive heart failure. A remote history of a small PA due to the first CVA, but no anginal symptoms after that. ENDOCRINE: There is no history of diabetes mellitus or thyroid disease. RENAL: There is no history of chronic kidney disease. As per the daughter, he is not being treated for a urinary tract infection. CENTRAL NERVOUS SYSTEM: History of CVAs x2. The patient started eating and speaking after the second CVA, and he has developed a severe right hemiparesis with rigidity, especially in the upper right extremity. He has not had seizures, since this is the first new-onset seizure. PSYCHIATRIC: It is difficult to say whether the patient is depressed or not, since the patient would not talk. PHYSICAL EXAMINATION: VITAL SIGNS: The patient is afebrile with a temperature off 98.6 degrees Fahrenheit. Pulse is 73 beats per minute. Blood pressure is 173/105. Respirations are 18/min. O2 sats are 96% on room air. HEENT: Head is atraumatic, normocephalic. Eyes: Pupils are equal, round, regular, reactive to light. ENT is negative. NECK: Supple. There is no JVD. Carotids are equal. There is no bruit. Trachea is central. There is no lymphadenopathy. LUNGS: Clear to auscultation and percussion. HEART: S1/S2 heard. S1 is of variable intensity. There is no S3 gallop. There is no S4 gallop. There is a systolic murmur in the left sternal border and apex. There is no rub. ABDOMEN: Soft, nontender. There is no hepatosplenomegaly. Bowel sounds are well heard. He has a PEG tube in place. EXTREMITIES: Femorals are diminished. There are no femoral bruits. Leg pulses are diminished. There is no pedal edema. CENTRAL NERVOUS SYSTEM: There is dense right hemiplegia with contractures of the right upper extremity. PSYCHIATRIC: The patient would not talk, and hence we were unable to examine him. DIAGNOSTIC STUDIES: The patient's head CT done on 09/07 showed, as per the report, *------* chronic changes of atrophy and microvascular ischemia; multiple areas of prior infarction noted. There is some prominence of the basilar tip; as noted above, I cannot exclude a basilar tip aneurysm. Clinical correlation is recommended. There is no evidence of acute stroke. His head CT done, repeated today, shows no evidence of new stroke. The ventricles are prominent. There are old infarcts and relation changes of aging with microvascular ischemia, and no acute intracranial findings. Number three, basilar artery aneurysm. There is no evidence of acute stroke. His EKG showed atrial fibrillation with controlled ventricular response and ventricular-paced beats. The patient's echocardiogram shows no obvious source of embolus in this echocardiogram. There is severe concentric left ventricular hypertrophy. The ventricle is normal in size. LV ejection fraction 51%. The left ventricular systolic function is low normal. The right ventricle is not well visualized. There is no evidence of mitral valve collapse. The mitral valve leaflets are thickened and redundant without clear evidence of prolapse. There is no vegetation seen on the mitral valve. There is mild to moderate mitral regurgitation. There is no mitral valve stenosis. There is mild aortic stenosis. There is no aortic regurgitation present. There is mild to moderate tricuspid regurgitation. Right ventricular systolic pressure is 31 mmHg, hence no significant pulmonary hypertension. The aortic root is mildly dilated. There is no pericardial effusion. There is a pacemaker lead in the right ventricle. There is no obvious cardiac source of emboli noted on this transthoracic echocardiogram. Followup with a SERA if cardiac source is still suspected. His chest x-ray done on 09/07/2017 shows cardiomegaly; no acute consolidations or pleural effusions are identified. The patient's white count is 5000, hemoglobin is 7.5, hematocrit is 35.4, platelet count is 185,000. The patient's protime is 15.5, INR is 1.15. The patient's sodium is 125.3, potassium 3.8, chloride is 100, CO2 is 33; the patient's BUN is 16, creatinine 0.66, GFR is greater than 60; the patient's glucose is 155; the patient's calcium was 9.3, and his liver function tests are normal. His troponin-I was 0.039. The patient's total protein is 7.6, albumin is 3.7. IMPRESSION: 1. New-onset seizures, most likely secondary to multiple infarcts and also uncontrolled hypertension / hypertensive emergency. 2. Hypertensive emergency. Note that the patient's blood pressure medication has been increased; his lisinopril has been increased to twice a day, and amlodipine has also been increased from 2.5 once a day to 10 mg once a day. Will see if the patient will need IV nicardipine. 3. Chronic atrial fibrillation, on Eliquis. 4. Note that the patient has a basilar artery aneurysm. Hence, I discussed with Dr. Canseco the Eliquis should be continued in view of the basilar artery aneurysm. 5. Dysphagia, not eating, hence the percutaneous endoscopic gastroscopy tube for feeding. 6. As per the daughter, there were 2 cerebrovascular accidents, but as per the CT scan of the head, the patient has had multiple infarcts, and hence there is a chance that the patient also has multiinfarct dementia. 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 10. Hyperlipidemia. Of note, the patient is a FULL CODE for now, and the daughter is the surrogate healthcare decision maker. RECOMMENDATION: Will discuss with Dr. Canseco regarding the need to continue Eliquis in view of the basilar artery aneurysm. Continue tube feeding. Continue Keppra and Dilantin. If the patient's blood pressure is not controlled with the current medications, then would start the patient on IV nicardipine. All of this discussed with the daughter and discussed with Dr. Canseco. Note, 40 minutes spent on this patient, with more than 50% of the time spent in direct patient care and also discussions with the patient's daughter. Also, his medications have been reviewed, and medication changes have been discussed with the attending physician on the case. Note, this is a patient with significant medical problems, and hence highly-complex decision making involved. The echocardiogram was discussed with the patient's daughter. Note that the patient was seen at 12:00 noon, as mentioned earlier. Will follow the patient. DICTATING PHYSICIAN: KELSEA VALLEJO M.D. [id number] PHY#: [id number] ID: [id number] JOB#: [id number] ACCT: [id number] cc:KELSEA VALLEJO M.D. >
[2017-09-10 06:01] LABS: ABSOLUTE LYMPHOCYTES (AUTO) 0.7 10^3/uL (0.5-4.7); ABSOLUTE MONOCYTES (AUTO) 0.6 10^3/uL (0.1-1.4); ABSOLUTE NEUT (AUTO) 5.1 10^3/uL (1.7-8.2); BASOPHILS % (AUTO) 0.5 % (0-2); EOSINOPHILS % (AUTO) 0.2 % (0-6); HEMATOCRIT 34.7 % (37.9-51.0); HEMOGLOBIN 11.4 g/dL (13.5-17.0); HGB HCT DIFFERENCE -0.5; LYMPHOCYTES % (AUTO) 11.5 % (13-45); MEAN CORPUSCULAR HEMOGLOBIN 25.4 pg (27.0-33.4); MEAN CORPUSCULAR HGB CONC 32.8 g/dL (32.0-36.0); MEAN CORPUSCULAR VOLUME 77 fl (80-97); MONOCYTES % (AUTO) 9.4 % (3-13); RED BLOOD COUNT 4.48 10^6/uL (4.35-5.55); RED CELL DISTRIBUTION WIDTH 19.4 % (11.5-14.0); SEGMENTED NEUTROPHILS % (AUTO) 78.4 % (42-78); WHITE BLOOD COUNT 6.5 10^3/uL (4.0-10.5)
[2017-09-10 06:31] LABS: ALANINE AMINOTRANSFERASE 30 U/L (21-72); ALBUMIN 3.7 g/dL (3.5-5.0); ALKALINE PHOSPHATASE 108 U/L (38-126); ANION GAP 13 (5-19); ASPARTATE AMINO TRANSFERASE 22 U/L (17-59); BILIRUBIN,DIRECT 0.4 mg/dL (0.0-0.4); BILIRUBIN,TOTAL 0.6 mg/dL (0.2-1.3); BLOOD UREA NITROGEN 14 mg/dL (7-20); CALCIUM 9.2 mg/dL (8.4-10.2); CARBON DIOXIDE 35 mmol/L (22-30); CHLORIDE 97 mmol/L (98-107); CREATININE RESULT 0.57 mg/dL (0.52-1.25); GLUCOSE 135 mg/dL (75-110); POTASSIUM 3.3 mmol/L (3.6-5.0); SODIUM 145.1 mmol/L (137-145); TOTAL PROTEIN 7.7 g/dL (6.3-8.2)
[2017-09-10] MEDS ORDERED: AMLODIPINE BESYLATE 10 MG TABLET NG SCH (10:00)
[2017-09-10] MEDS: LISINOPRIL 10 MG TABLET PO SCH ×2 (10:25→22:12)
[2017-09-10] MEDS: FERROUS SULFATE LIQUID 300 MG/5 ML UDC PO SCH (10:25)
[2017-09-10] MEDS: APIXABAN 5 MG TABLET PO SCH ×2 (10:26→22:13)
[2017-09-10] MEDS: CITALOPRAM HYDROBROMIDE 20 MG TABLET PO SCH (10:26)
[2017-09-10] MEDS: LEVETIRACETAM 500 MG TABLET PO SCH ×2 (10:27→22:12)
[2017-09-10] MEDS: AMLODIPINE BESYLATE 10 MG TABLET PEG SCH (10:27)
[2017-09-10] MEDS: METOPROLOL TARTRATE 25 MG TABLET PO SCH ×2 (10:28→22:13)
[2017-09-10] MEDS ORDERED: LEVETIRACETAM 500 MG TABLET PO ONE (11:30)
--- NOTE | 2017-09-10 21:19 | PDOC PROGRESS REPORT ---
Subjective Progress Note for:: 09/10/17 Subjective:: Patient was seen by the bedside, he has limited cognition, history of multiple CVA admitted because of the onset seizure with uncontrolled blood pressure, I discussed with patient's daughter about patient's poor prognosis, he also have basilar artery aneurysm. History of right hemiplegia nonverbal multiple CVA I believe at this point patient is a candidate for hospice care, hospice consultation will be requested for this patient. Patient requested for consultation from cardiology, he was seen by Dr. Ryan as well. Physical Exam Vital Signs: Temp Pulse Resp BP Pulse Ox 99.2 F 69 18 160/80 H 100 09/10/17 20:12 09/10/17 20:12 09/10/17 20:12 09/10/17 19:00 09/10/17 20:12 Intake & Output 09/09/17 09/10/17 09/11/17 06:59 06:59 06:59 Intake Total 0 1180 0 Output Total 800 Balance -800 1180 0 Weight 68.2 kg 67.9 kg 67.8 kg General appearance: PRESENT: other - Patient is stuporous Respiratory exam: PRESENT: clear to auscultation carmen Cardiovascular exam: PRESENT: +S1, +S2 GI/Abdominal exam: PRESENT: soft Neurological exam: PRESENT: altered Results Laboratory Results: 09/10/17 04:56 09/10/17 04:56 09/10/17 09/10/17 04:56 04:56 WBC 6.5 RBC 4.48 Hgb 11.4 L Hct 34.7 L MCV 77 L MCH 25.4 L MCHC 32.8 RDW 19.4 H Plt Count 162 Seg Neutrophils % 78.4 H Lymphocytes % 11.5 L Monocytes % 9.4 Eosinophils % 0.2 Basophils % 0.5 Absolute Neutrophils 5.1 Absolute Lymphocytes 0.7 Absolute Monocytes 0.6 Absolute Eosinophils 0.0 Absolute Basophils 0.0 Sodium 145.1 H Potassium 3.3 L Chloride 97 L Carbon Dioxide 35 H Anion Gap 13 BUN 14 Creatinine 0.57 Est GFR ( Amer) > 60 Est GFR (Non-Af Amer) > 60 Glucose 135 H Calcium 9.2 Total Bilirubin 0.6 AST 22 ALT 30 Alkaline Phosphatase 108 Total Protein 7.7 Albumin 3.7 09/07/17 09/07/17 09/08/17 23:44 23:44 06:44 Creatine Kinase 55 49 L CK-MB (CK-2) 1.91 Troponin I < 0.012 09/08/17 09/08/17 09/08/17 06:44 11:12 11:12 Creatine Kinase 49 L CK-MB (CK-2) 3.06 2.99 Troponin I 0.046 0.040 09/08/17 09/08/17 15:05 15:05 Creatine Kinase 52 L CK-MB (CK-2) 3.23 Troponin I 0.039 Impressions: Chest X-Ray 09/07/17 20:17 IMPRESSION: Cardiomegaly. No acute consolidations or pleural effusions are identified Carotid Doppler Study 09/08/17 00:00 IMPRESSION: NO HEMODYNAMICALLY SIGNIFICANT STENOSIS IN THE INTERNAL CAROTID ARTERIES. THE LEFT VERTEBRAL ARTERY IS NOT VISUALIZED AND MAY BE SMALL OR OCCLUDED. RIGHT VERTEBRAL ARTERY IS PATENT. . Head CT 09/09/17 00:00 IMPRESSION: 1. Old infarcts. 2. Involutional changes of aging with microvascular ischemia and and no acute intracranial findings. 3. Basilar artery aneurysm. EVIDENCE OF ACUTE STROKE: NO. Assessment & Plan - Diagnosis (1) New onset seizure Is this a current diagnosis for this admission?: Yes (2) Hypertensive emergency Is this a current diagnosis for this admission?: Yes (3) Chronic atrial fibrillation Is this a current diagnosis for this admission?: Yes (4) Basilar artery aneurysm Is this a current diagnosis for this admission?: Yes (5) Cerebral infarction Qualifiers: Cerebral infarction mechanism: unspecified mechanism Qualified Code(s): I63.9 - Cerebral infarction, unspecified Is this a current diagnosis for this admission?: Yes
[2017-09-10] MEDS: ATORVASTATIN CALCIUM 20 MG TABLET PO SCH (22:14)
[2017-09-11] MEDS: CIPROFLOXACIN HCL 0.3% OPH SOLN 2.5 ML OS SCH ×5 (01:18→17:14)
[2017-09-11] MEDS: FERROUS SULFATE LIQUID 300 MG/5 ML UDC PO SCH (09:59)
[2017-09-11] MEDS: LISINOPRIL 10 MG TABLET PO SCH (09:59)
[2017-09-11] MEDS: LEVETIRACETAM 500 MG TABLET PO SCH (09:59)
[2017-09-11] MEDS: AMLODIPINE BESYLATE 10 MG TABLET PEG SCH (10:00)
[2017-09-11] MEDS: CITALOPRAM HYDROBROMIDE 20 MG TABLET PO SCH (10:00)
[2017-09-11] MEDS: METOPROLOL TARTRATE 25 MG TABLET PO SCH (10:00)
[2017-09-11] MEDS ORDERED: HYDRALAZINE HCL 50 MG TABLET PO ONE (10:00)
[2017-09-11] MEDS ORDERED: HYDRALAZINE HCL 50 MG TABLET PO SCH (14:00)
--- NOTE | 2017-09-11 18:14 | PDOC TRANSFER SUMMARY ---
General - Admit/Disc Date/PCP Admission Date/Primary Care Provider: 09/07/17 22:51 RALPH CANSECO MD Discharge Date: 09/11/17 - Discharge Diagnosis (1) New onset seizure Is this a current diagnosis for this admission?: Yes (2) Hypertensive emergency Is this a current diagnosis for this admission?: Yes (3) Chronic atrial fibrillation Is this a current diagnosis for this admission?: Yes (4) Basilar artery aneurysm Is this a current diagnosis for this admission?: Yes (5) Cerebral infarction Is this a current diagnosis for this admission?: Yes - Additional Information Resuscitation Status: Full Code Home Medications: Acetaminophen [Tylenol 325 mg Tablet] 650 mg PO Q4HP PRN 09/08/17 Amlodipine Besylate [Norvasc 2.5 mg Tablet] 2.5 mg PO DAILY 09/08/17 Atorvastatin Calcium [Lipitor 20 mg Tablet] 20 mg PO QHS 09/08/17 Citalopram Hydrobromide [Celexa 20 mg Tablet] 20 mg PO DAILY 09/08/17 Ferrous Sulfate [Ferrous Sulfate 220 mg/5 ml Elix 60 ml] 325 mg PO DAILY Lisinopril [Prinivil 40 mg Tablet] 40 mg PO DAILY 09/08/17 Metoprolol Tartrate [Lopressor 25 mg Tablet] 12.5 mg PO Q12 09/08/17 Trazodone HCl [Desyrel 50 mg Tablet] 25 mg PO Q6HP PRN 09/08/17 Hydralazine HCl [Apresoline 50 mg Tablet] 50 mg PO Q8 tablet 09/11/17 Levetiracetam [Keppra 500 mg Tablet] 1,000 mg PO Q12 tablet 09/11/17 History of Present Illness Admission Date/PCP: 09/07/17 22:51 RALPH CANSECO MD History of Present Illness: MAGALI DUNCAN is a 67 year old male, he has a history of multiple strokes, resident of the skilled nursing at [place], residual right-sided paralysis, aphasia he was transferred from the skilled nursing to the emergency room because of altered mental status, there was question of a new stroke, in the emergency room he was noticed to be twitching but there was no definitive tonic-clonic contraction that would suggest a seizure, but seizure was suspected, he was given lorazepam intravenously with resolution of symptoms. He has a pacemaker MRI brain could not be done, initial CT head was negative for an acute stroke, while on the floor, a tonic-clonic contraction was witnessed by the nurse, was given lorazepam and subsequently IV Dilantin, loading dose. Patient overall prognosis is very poor, he has multiple CVA about 3 CVA before he moved down to [facility] in [place]. 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 MRA could not be done because he has a pacemaker , he has limited functions Hospital Course Hospital Course: Patient with multiple stroke, nonverbal, right sided hemiplegia admitted because of new onset seizure secondary to CVA versus hypertensive encephalopathy , he has a pacemaker, MRI brain could not be done, CT head done did not show any acute stroke, confirmed multiple stroke, showed basilar artery aneurysm. Patient overall condition is poor. He had stroke in [place] before he came down to [facility] with daughter, he was supposed to be undergoing physical therapy in the skilled nursing but his condition as been declining ever since he got there. Patient has poor function, he has chronic atrial fibrillation he was on anticoagulant with Eliquis, because of the basilar artery aneurysm the safety of Eliquis was questioned and the medication was kept on hold the last 24 hours. Because of patient non- functional status with multiple CVA poor cognition patient overall prognosis is very poor and there is limited therapeutic option for him, hospice care is best for him at this phase of his disease. Hospice consultation was ordered and the plan is to transfer patient to hospice patient is not expected to do well. Physical Exam Vital Signs: Temp Pulse Resp BP Pulse Ox 99.3 F 60 20 138/72 H 100 09/11/17 11:33 09/11/17 14:00 09/11/17 11:33 09/11/17 11:38 09/11/17 11:33 Intake & Output 09/10/17 09/11/17 09/12/17 06:59 06:59 06:59 Intake Total 1180 1056 90 Balance 1180 1056 90 Weight 67.9 kg 69.3 kg General appearance: PRESENT: no acute distress Respiratory exam: PRESENT: clear to auscultation carmen Cardiovascular exam: PRESENT: +S1, +S2 Neurological exam: PRESENT: altered, CN II-XII grossly intact - Right sided hemiplegia Results Laboratory Results: 09/10/17 04:56 09/10/17 04:56 09/07/17 09/07/17 09/08/17 23:44 23:44 06:44 Creatine Kinase 55 49 L CK-MB (CK-2) 1.91 Troponin I < 0.012 09/08/17 09/08/17 09/08/17 06:44 11:12 11:12 Creatine Kinase 49 L CK-MB (CK-2) 3.06 2.99 Troponin I 0.046 0.040 09/08/17 09/08/17 15:05 15:05 Creatine Kinase 52 L CK-MB (CK-2) 3.23 Troponin I 0.039 Impressions: Chest X-Ray 09/07/17 20:17 IMPRESSION: Cardiomegaly. No acute consolidations or pleural effusions are identified Carotid Doppler Study 09/08/17 00:00 IMPRESSION: NO HEMODYNAMICALLY SIGNIFICANT STENOSIS IN THE INTERNAL CAROTID ARTERIES. THE LEFT VERTEBRAL ARTERY IS NOT VISUALIZED AND MAY BE SMALL OR OCCLUDED. RIGHT VERTEBRAL ARTERY IS PATENT. . Head CT 09/09/17 00:00 IMPRESSION: 1. Old infarcts. 2. Involutional changes of aging with microvascular ischemia and and no acute intracranial findings. 3. Basilar artery aneurysm. EVIDENCE OF ACUTE STROKE: NO. Transfer Plan - Disposition Transfer Plan: Transfer to hospice
[2017-09-11 18:48] VITALS: BP 160/80
[2017-09-12] MEDS ORDERED: APIXABAN 5 MG TABLET PO SCH (10:00)
== END 2017-09-11 19:21 | disposition hospice, inpatient (51) | DRG 101 ==
LOC: ER 19:20 → EH 22:51 → UNDOADMIN 22:55 → EH 22:55 → 3W 09-08 01:18
PROVIDERS: ADMIT Internal Medicine; ATTEND Internal Medicine
DX: G40.802 Other epilepsy, not intractable, without status epilepticus (principal); I16.1 Hypertensive emergency; I69.351 Hemiplegia and hemiparesis following cerebral infarction affecting right dominant side; R41.82 Altered mental status, unspecified; I48.2 Chronic atrial fibrillation; E78.5 Hyperlipidemia, unspecified; H53.9 Unspecified visual disturbance; I72.5 Aneurysm of other precerebral arteries; I10 Essential (primary) hypertension; I69.320 Aphasia following cerebral infarction; Z79.01 Long term (current) use of anticoagulants; Z95.0 Presence of cardiac pacemaker; Z93.1 Gastrostomy status
CPT/HCPCS: 36415; 70450; 71010; 80053; 80061; 81001; 82550; 82553; 82962; 83036; 83735; 84484; 85025; 85610; 85730; 93005; 93010; 93306; 93880; 96365; 96375; 96376; 99285; J2060; J3490